=== PATIENT | female | born 1985 | race African-American/Black ===

== ENCOUNTER 2025-04-29 19:39 | Emergency (ER) | payer SELFPAY ==
[2025-04-29 19:40] VITALS: BP 160/108; PULSE 107; RESP 18; TEMP 37.2; O2SAT 98
== END 2025-04-29 19:54 | disposition left against medical advice (07) ==
LOC: ED 20:00
DX: Z53.21 Procedure and treatment not carried out due to patient leaving prior to being seen by health care provider (principal)